=== PATIENT | female | born 1980 | race American Indian/Alaskan Native ===

== ENCOUNTER 2019-06-30 09:19 | Outpatient (CLI) | payer OTHER | END 2019-06-30 10:14 | disposition home or self-care (01) | LOC: NST 09:19 | DX: Z34.83 Encounter for supervision of other normal pregnancy, third trimester (principal) ==

== ENCOUNTER 2019-07-14 09:10 | Outpatient (CLI) | payer OTHER | END 2019-07-14 10:13 | disposition home or self-care (01) | LOC: NST 09:10 | PROVIDERS: ATTEND Obstetrics & Gynecology | DX: Z34.83 Encounter for supervision of other normal pregnancy, third trimester (principal) ==

== ENCOUNTER 2019-07-28 09:29 | Outpatient (CLI) | payer OTHER | END 2019-07-28 10:38 | disposition home or self-care (01) | LOC: NST 09:29 | PROVIDERS: ATTEND Obstetrics & Gynecology Maternal & Fetal Medicine | DX: Z34.83 Encounter for supervision of other normal pregnancy, third trimester (principal) ==

== ENCOUNTER 2019-08-11 08:53 | Outpatient (CLI) | payer OTHER | END 2019-08-11 09:48 | disposition home or self-care (01) | LOC: NST 08:53 | PROVIDERS: ATTEND Obstetrics & Gynecology | DX: Z34.83 Encounter for supervision of other normal pregnancy, third trimester (principal) ==

== ENCOUNTER 2019-08-18 11:50 | Outpatient (CLI) | payer OTHER | END 2019-08-18 13:03 | disposition home or self-care (01) | LOC: NST 11:50 | PROVIDERS: ATTEND Obstetrics & Gynecology | DX: Z34.83 Encounter for supervision of other normal pregnancy, third trimester (principal) ==

== ENCOUNTER 2019-08-18 13:11 | Inpatient (IN) | payer OTHER ==
[~2019-08-18] VITALS: Ht 162.6 cm; Wt 4.1 kg
[2019-08-25] MEDS ORDERED: OBSTETRIX ONE1 EACH PO (09:29)
[2019-08-25] MEDS ORDERED: LABETALOL HCL100 MG PO (09:30)
[2019-08-25] MEDS ORDERED: INTEGRA PO (09:30)
[2019-08-25] MEDS ORDERED: PEPCID AC20 MG PO (09:31)
[2019-08-25] MEDS ORDERED: ARNUITY ELLIP100 MCG IH (09:31)
[2019-08-25] MEDS ORDERED: VENTOLIN HFA18 GM IH (09:32)
[2019-09-02] MEDS ORDERED: INTEGRA CAPSUL1 EACH PO (10:52)
[2019-09-02] MEDS ORDERED: PROAIR RESPICL90 MCG IH (10:53)
[2019-09-02] MEDS ORDERED: ACID REDUCER20 MG PO (10:54)
[2019-09-06] MEDS ORDERED: OXYC1TAB9 PO (10:23)
== END 2019-09-06 15:52 | disposition home or self-care (01) | DRG 788 ==
LOC: OB/GYN 09-02 07:45 → O/R 09-02 08:37 → OB/GYN 09-02 08:37
PROVIDERS: ADMIT Obstetrics & Gynecology; ATTEND Obstetrics & Gynecology
PROC: 4A1HXCZ Monitoring of Products of Conception, Cardiac Rate, External Approach (ICD-10-PCS; 2019-09-02)
PROC: 10D00Z1 Extraction of Products of Conception, Low, Open Approach (ICD-10-PCS; principal; 2019-09-02 09:45)
DX: O82 Encounter for cesarean delivery without indication (principal); Z3A.38 38 weeks gestation of pregnancy; Z37.0 Single live birth

== ENCOUNTER 2019-08-20 09:28 | Outpatient (CLI) | payer OTHER | END 2019-08-20 11:41 | disposition home or self-care (01) | LOC: NST 09:28 | PROVIDERS: ATTEND Obstetrics & Gynecology | DX: Z34.83 Encounter for supervision of other normal pregnancy, third trimester (principal) ==

== ENCOUNTER 2019-08-21 08:45 | Outpatient (CLI) | payer OTHER | END 2019-08-21 11:05 | disposition home or self-care (01) | LOC: NST 08:45 | PROVIDERS: ATTEND Obstetrics & Gynecology | DX: Z34.83 Encounter for supervision of other normal pregnancy, third trimester (principal) ==

== ENCOUNTER 2019-08-25 11:49 | Outpatient (CLI) | payer OTHER ==
[~2019-08-25 11:49] MED LIST: ARNUITY ELLIP100 MCG IH; INTEGRA PO; LABETALOL HCL100 MG PO; OBSTETRIX ONE1 EACH PO; PEPCID AC20 MG PO; VENTOLIN HFA18 GM IH
== END 2019-08-25 12:50 | disposition home or self-care (01) ==
LOC: NST 11:49
PROVIDERS: ATTEND Obstetrics & Gynecology
DX: Z34.83 Encounter for supervision of other normal pregnancy, third trimester (principal)

== ENCOUNTER 2019-08-28 09:46 | Outpatient (CLI) | payer OTHER | END 2019-08-28 10:40 | disposition home or self-care (01) | LOC: NST 09:46 | PROVIDERS: ATTEND Obstetrics & Gynecology | DX: Z34.83 Encounter for supervision of other normal pregnancy, third trimester (principal) ==